=== PATIENT | male | born 1960 | race Hispanic/Latino ===

== ENCOUNTER 2019-04-27 08:49 | Outpatient (CLI) | payer BC ==
--- NOTE | 2019-04-27 09:58 | CT ---
CT OF THE ABDOMEN AND PELVIS WITH AND WITHOUT IV CONTRAST INDICATION: Hematuria TECHNIQUE: Noncontrast CT of the abdomen and pelvis was performed. Postcontrast images were obtained in the nephrographic phase and delayed phase. Axial and coronal reformatted images were constructed from the raw data. COMPARISON: None FINDINGS: ABDOMEN: Lung bases: Clear Liver: No focal lesion. Gallbladder: Normal appearing. Pancreas: Normal. Adrenal glands: Normal. Spleen: Normal. Kidneys and ureters: There is a left mid abdomen horseshoe kidney. No hydronephrosis is demonstrated. No renal or ureteral calculus is noted. No gross urothelial lesion is identified within the segmentally opacified ureters. The distal left ureter is not well opacified and poorly evaluated on t he delayed phase images. Vasculature: Normal. Lymph nodes:No lymphadenopathy. Free fluid in abdomen:No free fluid is evident. PELVIS: Small and large bowel: There is a moderate amount of retained stool within the colon. Colonic diverti culosis. Appendix:Normal Bladder: There is wall thickening involving the bladder with perivesicular fat stranding. Some of the wall thickening may be accentuated due to poor distention. Rectal and perirectal soft tissues:Normal. Reproductive structures: The prostate gland is mildly enlarged measuring 5.8 cm Free fluid in pelvis: No free fluid is evident. Lymphadenopathy pelvis: No lymphadenopathy is evident. Osseous structures: No acute osseous abnormality. No destructive osteolytic or osteoblastic lesion i s identified. There is scattered degenerative and osteoarthritic changes. Soft tissues:Normal. IMPRESSION: 1. Horseshoe kidney without evidence of obstruction. No suspicious solid renal mass or gross urotheli al lesion identified. The left distal ureter was not well opacified on the delayed phase images; however, note definite abnormal enhancement or gross dilatation is seen within this region. 2. Wall thickening involving the bladder with perivesicular fat stranding is suspicious for cystitis or changes of chronic bladder outlet obstruction. The prostate is mildly enlarged. 3. Colonic diverticulosis with a moderate amount retained stool within the colon.
== END 2019-04-27 08:50 | disposition home or self-care (01) ==
LOC: BICCT 08:49
PROVIDERS: ATTEND Urology
DX: R31.0 Gross hematuria (principal); K57.30 Diverticulosis of large intestine without perforation or abscess without bleeding; N40.0 Benign prostatic hyperplasia without lower urinary tract symptoms; Q63.1 Lobulated, fused and horseshoe kidney
CPT/HCPCS: 74178

== ENCOUNTER 2019-07-12 07:39 | Outpatient (CLI) | payer BC ==
[2019-07-12 10:31] LABS: Hemoglobin 14.4 g/dL (14.0-18.0); Mean Corpuscular HGB CONC 33.3 g/dL (32.0-36.0); Mean Corpuscular Hemoglobin 30.4 pg (27.0-31.0); Mean Corpuscular Volume 91.3 fL (78.0-98.0); Mean Platelet Volume 7.7 fL (7.4-10.4); Platelet Count 256 thou/uL (130-400); RBC Distribution Width 12.1 % (11.5-14.5); Red Blood Cell (RBC) Count 4.72 mill/uL (4.70-6.10); White Blood Cell (WBC) Count 5.6 thou/uL (4.8-10.8)
[2019-07-12 10:36] LABS: Bacteria/HPF None Seen HPF (None Seen); Bilirubin Negative (Negative); Blood, Urine Negative (Negative); Calcium Oxalate Crystals Rare HPF (None Seen); Clarity Clear (Clear); Glucose, Urine (Dipstick) Normal (Negative); Leukocyte Negative Leu/uL (Negative); Nitrite Negative (Negative); Protein, Urine (Dipstick) Negative (Neg-Trace); RBC/HPF 0-3 HPF (0-3); Squamous Epithelial 0-3 HPF (0-3); WBC/HPF 0-3 HPF (0-3)
[2019-07-12 10:39] LABS: INR-International Normal Ratio 1.1; PTT 37.1 SEC (22.9-36.1); Prothrombin Time 14.4 SEC (12.0-14.7)
[2019-07-12 10:56] LABS: Anion Gap 13 mmol/L (10-20); BUN (Urea Nitrogen) 14 mg/dL (8.4-25.7); Calc. Creatinine Clearance 0 mL/min (70-130); Calcium 9.1 mg/dL (7.8-10.44); Carbon Dioxide 26 mmol/L (22-29); Chloride 104 mmol/L (98-107); Estimated GFR-MDRD 84; Glucose 86 mg/dL (70-105); Potassium 3.6 mmol/L (3.5-5.1); Sodium 139 mmol/L (136-145)
--- NOTE | 2019-07-13 08:29 | EKG ---
Test Reason : Blood Pressure : / mmHG Vent. Rate : 068 BPM Atrial Rate : 068 BPM P-R Int : 138 ms QRS Dur : 110 ms QT Int : 436 ms P-R-T Axes : -05 -26 -05 degrees QTc Int : 463 ms Normal sinus rhythm Incomplete right bundle branch block Borderline ECG When compared with ECG of 27-AUG-2016 12:26, Nonspecific T wave abnormality, improved in Anterior leads Confirmed by DR. Kunal ROMAN ([id number]) on 07/13/2019 8:29:09 AM Referred By: SADIE Confirmed By:DR. Kunal ROMAN
== END 2019-07-12 07:40 | disposition home or self-care (01) ==
LOC: LABBT 07:39
PROVIDERS: ATTEND Urology
DX: Z01.818 Encounter for other preprocedural examination (principal); N42.89 Other specified disorders of prostate; N40.1 Benign prostatic hyperplasia with lower urinary tract symptoms; R31.0 Gross hematuria; N52.01 Erectile dysfunction due to arterial insufficiency; R35.0 Frequency of micturition; Q63.2 Ectopic kidney
CPT/HCPCS: 80048; 81001; 85027; 85610; 85730; 87086; 93005; 93010

== ENCOUNTER 2019-07-20 06:55 | Observation (INO) | payer BC ==
[2019-07-20] MEDS ORDERED: Levofloxacin 500 mg/D5W 100 ml Premix Bag ONE (07:19)
[2019-07-20] MEDS ORDERED: Fentanyl 100 MCG/2 ML VIAL ONE ×2 (09:01→10:44)
[2019-07-20] MEDS ORDERED: PROPOFOL 200 MG/20 ML VIAL ONE (09:53)
[2019-07-20] MEDS ORDERED: Ondansetron PF 4 MG/2 ML Vial ONE (09:53)
[2019-07-20] MEDS ORDERED: Lidocaine 1% PF 5 ML VIAL ONE (09:53)
[2019-07-20] MEDS ORDERED: B & O ONE (10:23)
[2019-07-20] MEDS ORDERED: Phenazopyridine HCl 97.5 MG TABLET PO PRN (10:29)
[2019-07-20] MEDS ORDERED: Hyoscyamine Sulfate SL 0.125 mg Tablet SL PRN (10:29)
[2019-07-20] MEDS ORDERED: Oxybutynin 5 MG TAB PO PRN (10:29)
[2019-07-20] MEDS ORDERED: Acetaminophen 500 MG TAB PO PRN (10:29)
[2019-07-20] MEDS ORDERED: hydrALAZINE 20 MG/ML VIAL SLOW IVP PRN (10:29)
[2019-07-20] MEDS ORDERED: Mag-Al 1200 mg/1200 mg/30 ML UDCUP PO PRN (10:29)
[2019-07-20] MEDS ORDERED: Ondansetron PF 4 MG/2 ML Vial IVP PRN (10:29)
[2019-07-20] MEDS ORDERED: Bisacodyl 10 MG SUPP PR PRN (10:29)
[2019-07-20] MEDS ORDERED: diphenhydrAMINE 25 MG CAP PO PRN (10:29)
--- NOTE | 2019-07-20 14:42 | OP ---
DATE OF PROCEDURE: 07/20/2019 SERVICE: Urology. PREOPERATIVE DIAGNOSIS: BPH with prostatic stricture. POSTOPERATIVE DIAGNOSIS: BPH regrowth with bladder neck contracture. PROCEDURES PERFORMED: Transurethral resection of prostate repeat procedure of regrowth and dilation of bladder neck contracture. INDICATIONS FOR PROCEDURE: Mr. Velasco is a 59-year-old male with BPH, status post TURP in the past several years ago. He is having worsening urinary symptoms with hematuria. We had elected to proceed with a cystoscopy, but we were unable to perform a cystoscopy secondary to the patient having significant stricturing of what looked like the prostatic urethra. I was unable to pass the cystoscope there. Therefore, we have elected to bring him into the operating room, where we could complete a cystoscopy, open up the bladder neck contracture and prostatic stricture, and we will resect any prostatic regrowth tissue. Risks and benefits were discussed, and he has agreed to proceed forward. DESCRIPTION OF PROCEDURE: After identification of armband and verification of consent, the patient was brought back to the operating room. He underwent general anesthesia with an LMA. He was placed in dorsal lithotomy position and prepped and draped in usual sterile fashion. After appropriate time-out, a lubricated 22-Yakut rigid cystoscope was introduced per urethra into the prostate, where a prostatic stricture was noted using an Amplatz Super Stiff wire. This was cannulated through the true lumen into the bladder. Using the cystoscope beak, we were able to gently dilate the stricture, which turned out to be a bladder neck contracture, but there was stricturing in the midportion of the prostate as well. It was actually 1 relatively larger stricture that incorporated the bladder neck and mid prostatic region. This was sufficiently opened up enough with the cystoscope to allow adequate entry into the bladder. A cystoscopy did not demonstrate any mucosal abnormalities. There was grade 1 trabeculation. No stones. Ureters were in orthotopic location, unharmed. There were no tumors or any other concerning etiologies of the patient's hematuria except with likely stricturing. The cystoscope was then withdrawn, and a 26-Yakut resectoscope with visual obturator was brought in through the urethra and into the bladder. The visual obturator was switched out for the bipolar prostate resectoscope loop. Resection was started on the stricture at the bladder neck and was adequately opened and then the prostatic regrowth adenoma was resected until we were close to, but not through the capsule. Once the prostate was completely wide open carried out from the bladder neck to the verumontanum, the prostate was completely wide open. Some of the scar tissue that previously was present was resected to allow for adequate opening of the entire prostatic channel. Upon completion, there was no evidence of obstruction. Everything appeared wide open. All bleeding points were meticulously cauterized until there was no visible bleeding and complete hemostasis had been achieved. All prostate chips were evacuated with a combination of the Trips n Salsa evacuator and the resectoscope sheath. Both ureters were identified in their original location at the end of the procedure. The resectoscope was then removed, and a 22-Yakut 3-way Felipe catheter was placed with ease into the bladder. A 30 mL of sterile water was placed into the balloon. CBI was initiated. The B and O suppository were placed in the patient's rectum. The patient was then awakened and taken to PACU for recovery in stable condition. COMPLICATIONS: None. ESTIMATED BLOOD LOSS: Minimal. RETAINED TUBES AND DRAINS: A 22-Yakut 3-way Felipe catheter on CBI. SPECIMENS: Prostate chips for prostate analysis. DISPOSITION: The patient will be kept in the hospital overnight. We will plan a void trial tomorrow and discharge with followup care handle as an outpatient. Job ID: [id number]
[2019-07-20] MEDS: traMADol HCl 50 MG TAB PO PRN ×2 (14:45→22:05)
[2019-07-20 15:20] VITALS: BMI 24.1
[2019-07-20] MEDS ORDERED: Atorvastatin Calcium 10 MG TAB PO SCH (21:00)
[2019-07-20] MEDS: Docusate 100 MG CAP PO SCH (22:05)
[2019-07-21 05:43] LABS: #Eosinphils 0.2 thou/uL (0.0-0.7); #Lymphocytes 2.1 thou/uL (1.20-3.40); #Monocytes 0.4 thou/uL (0.11-0.59); #Neutrophils 3.6 thou/uL (1.40-6.50); %Basophils 0.5 % (0.0-1.0); %Eosinophils 3.1 % (0.0-10.0); %Lymphocytes 33.5 % (21.0-51.0); %Monocytes 6.8 % (0.0-10.0); %Neutrophils 56.1 % (42.0-75.0); Hemoglobin 14.1 g/dL (14.0-18.0); Mean Corpuscular HGB CONC 34.3 g/dL (32.0-36.0); Mean Corpuscular Hemoglobin 31.4 pg (27.0-31.0); Mean Corpuscular Volume 91.5 fL (78.0-98.0); Mean Platelet Volume 6.9 fL (7.4-10.4); Platelet Count 230 thou/uL (130-400); RBC Distribution Width 11.9 % (11.5-14.5); Red Blood Cell (RBC) Count 4.48 mill/uL (4.70-6.10); White Blood Cell (WBC) Count 6.4 thou/uL (4.8-10.8)
[2019-07-21 05:56] LABS: Anion Gap 9 mmol/L (10-20); BUN (Urea Nitrogen) 11 mg/dL (8.4-25.7); Calc. Creatinine Clearance 78 mL/min (70-130); Calcium 8.9 mg/dL (7.8-10.44); Carbon Dioxide 31 mmol/L (22-29); Chloride 100 mmol/L (98-107); Estimated GFR-MDRD 66; Glucose 99 mg/dL (70-105); Potassium 4.1 mmol/L (3.5-5.1); Sodium 136 mmol/L (136-145)
[2019-07-21] MEDS: Docusate 100 MG CAP PO SCH (09:01)
[2019-07-21] MEDS: traMADol HCl 50 MG TAB PO PRN (10:25)
[2019-07-21 12:33] VITALS: BP 134/95; TEMP 97.7
--- NOTE | 2019-07-21 17:27 | PRG ---
DATE OF SERVICE: 07/21/2019 SUBJECTIVE: The patient states he had a very good night. No bladder spasms. No chest pain or shortness of breath. OBJECTIVE: VITAL SIGNS: Temperature 98.1, pulse 55, respirations 18, blood pressure 129/80, and saturation 97% on room air. GENERAL: No apparent distress. Communicative and alert. CARDIOVASCULAR: Regular rate and rhythm. ABDOMEN: Soft, nontender, and nondistended. Positive bowel sounds. : Felipe catheter in place with clear yellow urine, off CBI. EXTREMITIES: No edema. LABORATORY EVALUATION: The full set of labs are in the [facility] system, which I have reviewed. Of note, the patient's white count is 6.4 and creatinine is 1.13. ASSESSMENT AND PLAN: A 59-year-old male, status post transurethral resection of the prostate s/p dilation/treatment of intraprostatic stricture and bladder neck contracture postop day #1, doing very well. We will plan a void trial so long as he was able to urinate. The patient can be discharged home and I will see him on an outpatient basis. I have gone over all of his discharge instructions with him. Job ID: [id number] MTDD
--- NOTE | 2019-07-22 00:15 | DIS ---
DATE OF ADMISSION: 07/20/2019 DATE OF DISCHARGE: 07/21/2019 ADMITTING DIAGNOSIS: BPH and prostatic stricture. DISCHARGE DIAGNOSIS: BPH with bladder neck contracture and intraprostatic stricture. PROCEDURE PERFORMED: Transurethral resection of bladder neck and repeat transurethral resection of prostate with dilation of bladder neck. BRIEF HISTORY: Mr. Velasco is a 59-year-old male with history of BPH and TURP in the past. Unfortunately, he developed a bladder neck contracture with intraprostatic stricture. He is now being brought back to the operating room for repeat TURP and dilation of the stricture. Risks and benefits of the surgery were discussed and he has agreed to proceed forward. The full H and P can be found in the scanned portion of the [employer] system. HOSPITAL COURSE: After surgery (please see operative note for details) the patient was kept in the hospital overnight while on CBI. The CBI was stopped this morning. He had no issues overnight. The catheter was taken out. The patient spontaneously voided very light bloody urine. He felt good, so he was discharged home. DISPOSITION: Discharge to home. DISCHARGE CONDITION: Good. DISCHARGE MEDICATIONS: Please see medication reconciliation. DISCHARGE INSTRUCTIONS: Discharge instructions have been explained to the patient and he will follow up with me in approximately 1 to 2 weeks for a postop check. Job ID: [id number]
== END 2019-07-21 13:53 | disposition home or self-care (01) ==
LOC: SDC 06:55 → SURG B 10:32
PROVIDERS: ADMIT Urology; ATTEND Urology
PROC: 0VT08ZZ Resection of Prostate, Via Natural or Artificial Opening Endoscopic (ICD-10-PCS; principal; 2019-07-20)
DX: N40.1 Benign prostatic hyperplasia with lower urinary tract symptoms (principal); N13.8 Other obstructive and reflux uropathy; N32.89 Other specified disorders of bladder; N42.89 Other specified disorders of prostate; Z79.899 Other long term (current) drug therapy; Z98.890 Other specified postprocedural states
CPT/HCPCS: 36415; 80048; 85025; 88305; 96365; G0378; J1956; J2001; J2405; J2704; J3010; Q0163

== ENCOUNTER 2019-11-10 06:07 | Outpatient (CLI) | payer BC, OTHER ==
[2019-11-11 12:15] LABS: SARS-CoV-2 MS2 Positive; SARS-CoV-2 N Gene Negative; SARS-CoV-2 S Gene Negative; SARS-CoV-2 orf1ab Negative
== END 2019-11-10 06:08 | disposition home or self-care (01) ==
LOC: LABBT 06:07
PROVIDERS: ATTEND Neurological Surgery
DX: Z01.812 Encounter for preprocedural laboratory examination (principal); Z11.59 Encounter for screening for other viral diseases; M48.02 Spinal stenosis, cervical region
CPT/HCPCS: 87635; U0003

== ENCOUNTER 2019-11-13 07:42 | Day surgery (SDC) | payer BC ==
[2019-11-08 12:13] VITALS: BMI 24.4
--- NOTE | 2019-11-12 23:01 | HP ---
HISTORY OF PRESENT ILLNESS: Mr. Velasco is a pleasant 59-year-old gentleman, referred to us for evaluation of what sounds to be early signs of myelopathy including tingling in the fingers and hands, dropping items where he had been in the past, but denies any gait abnormality. There is new MRI from [facility] that reveals T2 signal change in the C4-L5 spinal level of the cervical cord. This appears to be secondary to impose severe spinal canal stenosis secondary to disk osteophyte complex. This MRI was performed to encourage the right shoulder MRI to evaluate possible causes of right upper extremity pain. He has since had shoulder surgery on that side and his pain issues are improving. Exam is deferred secondary to COVID-19 total health visit. PAST MEDICAL HISTORY: Significant for BPH. CURRENT MEDICATIONS: None listed. ALLERGIES: NO KNOWN DRUG ALLERGIES. PAST SURGICAL HISTORY: Prostatectomy and right shoulder arthroscopy. ASSESSMENT: Cervical myelopathy and spinal stenosis. PLAN: Dr. Mcdonough met with the patient, reviewed imaging, advocated for C4-C5 ACDF. He explained the patient risks, benefits, and alternatives to the procedure. The patient expressed understanding and elected to move forward with surgery as discussed. I do believe the patient is mentally competent and capable of making medical decisions for himself. We will move forward with surgery as planned. Job ID: [id number]
[2019-11-13] MEDS ORDERED: Thrombin 5000 UNITS/5 ML VIAL ONE (09:36)
[2019-11-13] MEDS ORDERED: Midazolam HCl 2 mg/2 ml Vial ONE (09:46)
[2019-11-13] MEDS ORDERED: Fentanyl 100 MCG/2 ML VIAL ONE ×3 (09:46→11:58)
[2019-11-13] MEDS ORDERED: EPHEDRINE 25 MG/5 ML SYRINGE ONE (11:14)
[2019-11-13] MEDS ORDERED: Ondansetron PF 4 MG/2 ML Vial ONE (11:14)
[2019-11-13] MEDS ORDERED: Rocuronium Bromide 10 MG/ML (10ML VIAL) ONE (11:14)
[2019-11-13] MEDS ORDERED: Ketorolac Tromethamine 30 MG/ML VIAL ONE (11:14)
[2019-11-13] MEDS ORDERED: PROPOFOL 200 MG/20 ML VIAL ONE (11:14)
[2019-11-13] MEDS ORDERED: Dexamethasone 20 MG/5 ML VIAL ONE (11:14)
[2019-11-13] MEDS ORDERED: Glycopyrrolate 0.2 MG/ML 5 ML SYRINGE ONE (11:14)
[2019-11-13] MEDS ORDERED: diphenhydrAMINE 50 MG/ML VIAL ONE (11:14)
[2019-11-13] MEDS ORDERED: Tamsulosin HCl 0.4 MG CAP ONE (12:40)
--- NOTE | 2019-11-13 14:10 | OP ---
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 DIAGNOSIS: Cervical radiculopathy, spondylotic myelopathy. PROCEDURE PERFORMED: Anterior cervical diskectomy and fusion, C4-C5. ANESTHESIA: General. DESCRIPTION OF PROCEDURE: The patient was brought into the operating room and placed under general anesthesia. He was placed on table in supine position. His neck was maintained in a neutral position. A transverse incision was planned over the lateral aspect of the neck on the right. After prepping and draping and after an appropriate preoperative pause, the incision was created. The underlying platysma muscle was identified and incised. A blunt tissue plane anterior to the sternocleidomastoid muscle was used to gain access to the prevertebral space. Self-retaining retractors were placed in the wound for optimal exposure. After confirming the appropriate level with C-arm fluoroscopy, an annulotomy was performed in the C4-C5 disk space. All disk material as well as anterior and posterior osteophytes were removed. After completing the decompression, an 8-mm lordotic PEEK cage packed with allograft and autograft material was placed within the interbody space. An anterior cervical plate was then fashioned to the front of the spine and secured with a total of 4 fixed screws. Midline and lateral structures were inspected and found to be free from significant trauma. The wound was irrigated. Hemostasis was maintained throughout. The wound was then closed in anatomic layers, and a pressure dressing was applied. There were no known procedural complications. Job ID: [id number]
== END 2019-11-13 13:59 | disposition home or self-care (01) ==
LOC: SDC 07:42
PROVIDERS: ATTEND Neurological Surgery
PROC: 0RG10A0 Fusion of Cervical Vertebral Joint with Interbody Fusion Device, Anterior Approach, Anterior Column, Open Approach (ICD-10-PCS; principal; 2019-11-13)
PROC: 0RG1070 Fusion of Cervical Vertebral Joint with Autologous Tissue Substitute, Anterior Approach, Anterior Column, Open Approach (ICD-10-PCS; principal; 2019-11-13)
PROC: 0RT30ZZ Resection of Cervical Vertebral Disc, Open Approach (ICD-10-PCS; principal; 2019-11-13)
DX: M47.12 Other spondylosis with myelopathy, cervical region (principal); M47.22 Other spondylosis with radiculopathy, cervical region; M48.02 Spinal stenosis, cervical region
CPT/HCPCS: 76000; C1713; C1776; J0690; J1100; J1200; J1885; J2250; J2405; J2704; J3010

== ENCOUNTER 2020-10-31 12:59 | Outpatient (CLI) | payer BC | END 2020-10-31 13:00 | disposition home or self-care (01) | LOC: DTY/OP 12:59 | PROVIDERS: ATTEND Family Medicine | DX: E78.5 Hyperlipidemia, unspecified (principal); Z71.3 Dietary counseling and surveillance | CPT/HCPCS: 97802 ==